=== PATIENT | female | born 1985 | race Caucasian/White ===

== ENCOUNTER → 2018-05-05 | Outpatient (CLI) | payer OTHER ==
[~2018-05-05] MED LIST: ALBU90OI INH; CEFD300 PO; CEPH500 PO; NEXAFED30 MG PO; Naprosyn500 MG PO; Nasonex17 GM; Pepcid40 MG PO; Prednisone20 MG PO; Zithromax250 MG PO
[2018-05-10 08:12] LABS: CHLAMYDIA TRACHOMATIS, NAA Negative (Negative); NEISSERIA GONORRHOEAE, NAA Negative (Negative)
== END | disposition home or self-care (01) ==
LOC: LAB SHORT 12:04 → LAB 12:04
PROVIDERS: Advanced Practice Midwife
DX: Z11.3 Encounter for screening for infections with a predominantly sexual mode of transmission (principal)
CPT/HCPCS: 87491; 87591

== ENCOUNTER 2019-07-10 14:10 | Emergency (ER) | payer OTHER ==
[~2019-07-10] VITALS: Ht 154.9 cm; Wt 125.2 kg
[2019-07-10] MEDS ORDERED: DICLOFENAC SOD100 G1 TOP (15:23)
== END 2019-07-10 15:30 | disposition home or self-care (01) ==
LOC: ER 14:10
DX: S86.912A Strain of unspecified muscle(s) and tendon(s) at lower leg level, left leg, initial encounter (principal); X58.XXXA Exposure to other specified factors, initial encounter; Z88.0 Allergy status to penicillin; Z91.018 Allergy to other foods; Z79.52 Long term (current) use of systemic steroids; Z87.891 Personal history of nicotine dependence
CPT/HCPCS: 73562-LT; 99283-25

== ENCOUNTER → 2022-04-03 | Outpatient (CLI) | payer OTHER ==
[~2022-04-03] MED LIST changes: +DICLOFENAC SOD100 G1 TOP
[2022-04-03 14:36] LABS: Candida species (DNA Probe) Negative (NEGATIVE); G. vaginalis (DNA Probe) Positive (NEGATIVE); T. vaginalis (DNA Probe) Negative (NEGATIVE)
[2022-04-03 14:43] LABS: Free Thyroxine 0.86 ng/dL (0.70-1.60); Thyroid Stimulating Hormone 2.16 uIU/mL (0.360-4.800); Triiodothyronine, Free 3.19 pg/mL (2.18-3.98)
[2022-04-06 15:09] LABS: HPV 16 Negative (Negative); HPV 18 Negative (Negative); HPV OTHER HR TYPES Negative (Negative)
== END ==
LOC: LAB SHORT 13:01
PROVIDERS: Advanced Practice Midwife
DX: E03.9 Hypothyroidism, unspecified (principal); N76.0 Acute vaginitis; Z01.419 Encounter for gynecological examination (general) (routine) without abnormal findings
CPT/HCPCS: 84439; 84443; 84481; 87480; 87510; 87660